=== PATIENT | male | born 1970 | race Caucasian/White ===

== ENCOUNTER 2018-08-26 17:49 | Emergency (ER) | payer OTHER, SELFPAY ==
[2018-08-26 18:06] VITALS: BP 128/85; PULSE 111; RESP 18; O2SAT 97
--- NOTE | 2018-08-26 18:23 | ED.GENADUL_ITS ---
Discharge Plan Disposition Patient Disposition: HOME Condition: Good Discharge Details Chief Complaint: RespSymp Clinical Impression: Viral URI with cough Reason For Visit: cough sorethroat Primary Care Provider: Migdalia Dalton ED Provider: Vitor Lamar [place] Meds and New Rx's Prescriptions: Continued buspirone 5 MG tablet 10 mg PO DAILY RF: 0 clonazepam [Klonopin] 0.5 MG tablet 0.5 mg PO DIRECTED PRNRF: 0 paroxetine HCl 40 MG tablet 40 mg PO DAILY RF: 0 Men's Daily 1 EACH capsule 1 ea PO DAILY RF: 0 Discharge Instructions Instructions: Upper Respiratory Infection (ED) Additional Instructions: You may continue [id number] cold medication as we discussed. Try to rest and drink plenty of fluids. Cough can linger even after the illness is better. Follow-up with primary care next week if not feeling any better. Return to ED if high fever, difficulty breathing, chest pain, other concerns. Referrals: Migdalia Dalton, PA [Primary Care Provider] - Medical Decision Making Patient's throat looks fine but his complaint is mostly pain with swallowing and coughing. Rapid strep was done and negative. Lungs are clear and saturations are good. Will obtain chest x-ray to rule out pneumonia but I think this is just URI with cough and congestion. His GI symptoms are resolved from last week. His abdomen is benign. He does not appear to be in any distress. Witho ut fever, headache, myalgias not really consistent with influenza. Chest x-ray per my review as well as preliminary radiology read negative. Patient be discharged home to continue [id number] medications as needed for cold symptoms. Follow-up with primary care next week if not doing any better. Return to ED for high fevers, mental status changes, shortness of breath, chest pain, other concerns. HPI General Mode of arrival: ambulatory . Date/Time Provider Initiated Documentation: 08/26/18 18:23 . Limitations to Documentation: no limitations . Information obtained by: patient . HPI Narrative: Patient presents to ED with complaints of cough and sore throat. Patient had a day of nausea, vomiting, diarrhea last week. It resolved and he subsequently developed cough, sore throat. Never had a fever. Does have some congestion. Denies headache or body aches. Has some pain in the right ribs with cough only. He does not feel short of breath. He does not have pleuritic pain. He has no further GI symptoms. The thing that is bothering him the most is his throat. Related Data Home Medications Medication Instructions Recorded Confirmed buspirone 10 mg PO DAILY 11/11/14 08/26/18 clonazepam [Klonopin] 0.5 mg PO DIRECTED PRN 11/11/14 08/26/18 paroxetine HCl 40 mg PO DAILY 11/11/14 08/26/18 Men's Daily 1 ea PO DAILY 08/14/16 08/26/18 Allergies Allergy/AdvReac Type Severity Reaction Status Date / Time acetaminophen [From Percocet] AdvReac Mild Nausea Unverified 08/26/18 18:12 codeine AdvReac Mild Nausea Unverified 08/26/18 18:12 oxycodone HCl [From Percocet] AdvReac Mild Nausea Unverified 08/26/18 18:12 MAPLE FLAVORING AdvReac Intermediate Uncoded 08/26/18 18:12 General Stated Complaint: RespSymp ROB: 4 Review of Systems Constitutional Denies fatigue, Denies fever(s), Denies headache(s), Denies lethargy, Denies poor appetite and Denies weakness Eyes Denies eye discharge ENT Reports otalgia, Denies headache(s), Denies mouth pain, Reports nasal congestion, Denies neck pain and Reports sore throat Cardiovascular Denies chest pain, Denies diaphoresis, Denies syncope, Denies edema, Denies palpitations and Denies dyspnea Respiratory Reports cough and Denies dyspnea Gastrointestinal Denies abdominal pain, Denies diarrhea, Denies nausea and Denies vomiting Musculoskeletal Denies back pain, Denies neck pain and Denies numbness Integumentary/Breasts Denies rash Neurologic Denies confusion, Denies syncope, Denies headache(s), Denies numbness and Denies weakness Psychiatric Denies confusion Endocrine Denies fatigue and Denies palpitations [facility] Medical History Anxiety (Chronic) Depression (Chronic) Surgical History H/O knee surgery (Inactive) H/O shoulder surgery (Inactive) Social History Smoking and Tabacco status: Former Tobacco Use Exam Const General: cooperative, comfortable and no acute distress Orientation: alert and oriented x3 HENMT Head: normocephalic and atraumatic Ears: external ears normal and TM's normal bilaterally General nose exam: no nasal discharge Mouth: oropharynx normal and moist mucous membranes Throat: posterior oropharynx normal Eyes Conjunctivae: conjunctivae normal Neck Neck: no lymphadenopathy, trachea midline and supple Resp Effort & Inspection: normal respiratory effort Auscultation: clear to auscultation bilaterally Cardio Rate: regular rate Rhythm: regular rhythm Heart Sounds: S1 normal and S2 normal GI Palpation: soft, not firm, no guarding and nontender Neuro General: alert, oriented x3, no focal motor deficits and CN's II-XI intact bilaterally Course Vital Signs Pulse 111 H 08/26/18 18:06 Respiratory Rate 18 08/26/18 18:06 Blood Pressure 128/85 08/26/18 18:06 Pulse Oximetry 97 08/26/18 18:06 Pulse 111 H 08/26/18 18:06 Respiratory Rate 18 08/26/18 18:06 Respiratory Effort 08/26/18 18:09 Blood Pressure 128/85 08/26/18 18:06 Pulse Oximetry 97 08/26/18 18:06 Oxygen Delivery Method Room Air 08/26/18 18:06 Oxygen Flow Rate 0 08/26/18 18:06
--- NOTE | 2018-08-26 19:35 | DI.RAD_ITS ---
SYMPTOMS/DIAGNOSIS: COUGH, SORE THROAT, CHEST PAIN CHEST X-RAY, PA AND LATERAL: No priors. The heart is normal in size. The lungs are clear. The mediastinal structures and pleura appear intact. IMPRESSION: Normal chest.
--- NOTE | 2018-08-26 19:59 | DI.VRAD_ITS ---
EXAM: XR Chest, 2 Views EXAM DATE/TIME: 08/26/2018 6:59 PM CLINICAL HISTORY: 47 years old, male; Signs and symptoms; Cough; Patient HX: Cough with chest pain when coughing TECHNIQUE: XR of the chest, 2 views. COMPARISON: No relevant prior studies available. FINDINGS: Lungs: Unremarkable. No consolidation. Pleural space: Unremarkable. No pleural effusion. No pneumothorax. Heart/Mediastinum: Unremarkable. No cardiomegaly. Bones/joints: Unremarkable. IMPRESSION: No infiltrates or effusions. Dictated and Authenticated by: Gagandeep Gregory MD. Ordering:CAITLIN Adler MD
[2018-08-26 20:20] VITALS: BP 121/73; PULSE 103; RESP 16; TEMP 36.8; O2SAT 100
== END 2018-08-26 20:28 | disposition home or self-care (01) ==
PROVIDERS: Emergency Provider Emergency Medicine; PCP Physician Assistant Medical
DX: R05 Cough (principal); R07.89 Other chest pain; H92.01 Otalgia, right ear; J06.9 Acute upper respiratory infection, unspecified; Z87.891 Personal history of nicotine dependence
CPT/HCPCS: 87880; 99283; 71046; 84443; 87081

== ENCOUNTER 2019-07-09 17:19 | Emergency (ER) | payer OTHER, SELFPAY ==
[2019-07-09 17:23] VITALS: BP 150/80; PULSE 104; RESP 16; TEMP 36.7; O2SAT 98
--- NOTE | 2019-07-09 18:39 | W.ED.GENAD ---
Discharge Plan Disposition Patient Disposition: HOME Condition: Stable Discharge Details Chief Complaint: Orthopedic Clinical Impression: Right knee sprain Primary Care Provider: Migdalia Dalton ED Provider: Tamra Yeung Home Meds and New Rx's Prescriptions: Continued buspirone 5 MG tablet 10 mg PO DAILY RF: 0 clonazepam [Klonopin] 0.5 MG tablet 0.5 mg PO DIRECTED PRNRF: 0 paroxetine HCl 40 MG tablet 40 mg PO DAILY RF: 0 Men's Daily 1 EACH capsule 1 ea PO DAILY RF: 0 Discharge Instructions Instructions: Knee Sprain (ED) Additional Instructions: Rest, ice, elevate right wrist as much as possible. Wear the knee brace is much as possible while symptoms present. Alternate tylenol and motrin as needed and directed for pain. Follow-up with your primary care doctor in 1 week. If symptoms do not improve or worsen, follow-up with orthopedics. Return to the emergency department with any worsening or new concerning symptoms. Stand Alone Forms: Work Release Referrals: Dannie Waldrop MD [ [facility] STAFF PHYSICIAN] - Discharge Data Discharge Date/Time-TO BE ENTERED AT DEPARTURE: 07/09/19 20:00 Discharge Physician: Tamra Yeung Medical Decision Making 48-year-old male presents with right knee pain that occurred suddenly when he attempted to pickling solution maker his adult [id number]. He states the pain is worse with range of motion and weightbearing. He has not taken any medication for pain. He has minimal suprapatellar edema but no significant effusion, erythema, ecchymosis or lesions noted. No obvious ligamentous laxity. Exam and history not consistent with septic arthritis. Right knee x-ray negative. Patient felt some improvement with ibuprofen. A right knee hinged brace was placed. He was advised on the importance of rice, Tylenol, Motrin. Advised to follow-up with PCP. Also given orthopedic follow-up info if needed. Usual and customary return precautions given prior to discharge. Medical Records Medical records reviewed: Yes I reviewed the patient's medical records. Imaging Data Radiologic Study: Radiologist's impression: XR Left Knee Exam date and time: 07/09/2019 5:56 PM Age: 48 years old Clinical indication: Pain; Knee; Right; Additional info: RT knee pain S/P picking something up TECHNIQUE: Imaging protocol: XR Left knee. Views: 4 or more views. COMPARISON: No relevant prior studies available. FINDINGS: Bones/joints: Normal. Soft tissues: Normal. IMPRESSION: 1. No acute findings. 2. No fracture. No dislocation. No joint effusion. HPI General Mode of arrival: ambulatory. Date/Time Provider Initiated Documentation: 07/09/19 17:35. Limitations to Documentation: no limitations. Information obtained by: patient. History of Present Illness 48 year old M presents to the emergency department with the chief complaint of Right knee pain, Patient started experiencing this hour(s) (1) and it has been constant. Rest improves symptom(s), Movement worsens symptoms and Other factors that worsen symptoms (Weightbearing) . Patient notes denies fever/chills and weakness. Patient did receive the following treatments prior to arrival, none Related Data Home Medications Medication Instructions Recorded Confirmed buspirone 10 mg PO DAILY 11/11/14 07/09/19 clonazepam [Klonopin] 0.5 mg PO DIRECTED PRN 11/11/14 07/09/19 paroxetine HCl 40 mg PO DAILY 11/11/14 07/09/19 Men's Daily 1 ea PO DAILY 08/14/16 07/09/19 Allergies Allergy/AdvReac Type Severity Reaction Status Date / Time acetaminophen [From Percocet] AdvReac Mild Nausea Unverified 07/09/19 17:28 codeine AdvReac Mild Nausea Unverified 07/09/19 17:28 oxycodone HCl [From Percocet] AdvReac Mild Nausea Unverified 07/09/19 17:28 MAPLE FLAVORING AdvReac Intermediate Uncoded 07/09/19 17:28 General Stated Complaint: Orthopedic ROB: 4 Review of Systems All systems reviewed & are unremarkable except as noted in HPI and below PFSH Medical History Anxiety (Chronic) Depression (Chronic) Surgical History H/O knee surgery (Inactive) H/O shoulder surgery (Inactive) Social History Smoking/Tobacco Use Status: Former Tobacco Use Alcohol Intake: current Alcohol Intake frequency: holidays/special occasions only Drug use: Never Substance use type: does not use Do you feel safe at home: Yes Do you feel safe in your relationship?: Yes Exam Const General: cooperative, healthy appearing and no acute distress HENHI Head: normal to inspection Mouth: oral mucosae normal Eyes General: appearance normal, both eyes and all related structures Neck Neck: normal visual inspection Resp Effort & Inspection: normal respiratory effort and able to speak in complete sentences Cardio Rate: regular rate Skin General skin exam: no rashes or lesions noted Neuro General: alert, awake and oriented x3 Motor: muscle tone normal throughout Extrem General: normal to inspection Other: Tenderness to palpation of right medial knee. Pain with valgus stress. No pain with varus stress. Negative anterior posterior drawer test. Negative Arnold's test. No ligamentous instability. There is very minimal edema noted to suprapatellar region. There is no ecchymosis, erythema rash or lesions. Psych Appearance: grossly normal Affect: normal affect Course Vital Signs Vital signs: Vital Signs Temperature 98.1 F 07/09/19 17:23 Pulse 104 H 07/09/19 17:23 Respiratory Rate 16 07/09/19 17:23 Blood Pressure 150/80 H 07/09/19 17:23 Pulse Oximetry 98 07/09/19 17:23 Temperature 98.1 F 07/09/19 17:23 Temperature Source Temporal Artery Scan 07/09/19 17:23 Pulse 104 H 07/09/19 17:23 Respiratory Rate 16 07/09/19 17:23 Respiratory Effort Non-Labored 07/09/19 18:34 Blood Pressure 150/80 H 07/09/19 17:23 Blood Pressure Position Sitting 07/09/19 17:23 Pulse Oximetry 98 07/09/19 17:23 Oxygen Delivery Method Room Air 07/09/19 17:23 Oxygen Flow Rate 0 07/09/19 17:23 Pain Level 10 07/09/19 17:23
[2019-07-09] MEDS: Ibuprofen 600 MG TAB PO (18:43)
--- NOTE | 2019-07-09 19:08 | DI.RAD_ITS ---
EXAM: XR KNEE RT 4V AP,LAT,SANTOS,PAT CLINICAL HISTORY: right knee pain with picking up something TECHNIQUE: COMPARISON: No exams were available for comparison FINDINGS: Four views were obtained. There are mild degenerative changes most prominent involving the medial t ibiofemoral joint where there is mild cartilaginous joint space narrowing. No evidence of acute frac ture. IMPRESSION:
--- NOTE | 2019-07-09 19:41 | DI.VRAD_ITS ---
PROCEDURE INFORMATION: Exam: XR Left Knee Exam date and time: 07/09/2019 5:56 PM Age: 48 years old Clinical indication: Pain; Knee; Right; Additional info: RT knee pain S/P picking something up TECHNIQUE: Imaging protocol: XR Left knee. Views: 4 or more views. COMPARISON: No relevant prior studies available. FINDINGS: Bones/joints: Normal. Soft tissues: Normal. IMPRESSION: 1. No acute findings. 2. No fracture. No dislocation. No joint effusion. Dictated and Authenticated by: Moises Landin MD. Ordering:CHRISTIN Barboza MD
== END 2019-07-09 20:00 | disposition home or self-care (01) ==
PROVIDERS: Emergency Provider Physician Assistant; PCP Physician Assistant Medical
DX: S83.91XA Sprain of unspecified site of right knee, initial encounter (principal); X50.9XXA Other and unspecified overexertion or strenuous movements or postures, initial encounter
CPT/HCPCS: 99283; 73564; L1810

== ENCOUNTER 2019-09-08 16:39 | Outpatient (REF) | payer OTHER, SELFPAY ==
[2019-09-08 20:12] LABS: Abs Immature Grans 0.02 k/cumm (0.0-0.09); Absolute Basophil Count 0.04 k/cumm (0.0-0.2); Absolute Eosinophil Count 0.18 k/cumm (0.0-0.7); Absolute Lymphocyte Count 2.26 k/cumm (1.2-3.4); Absolute Monocyte Count 0.97 k/cumm (0.11-0.7); Absolute Neutrophil Count 3.82 k/cumm (1.2-6.7); Basophils % 0.5; Eosinophils % 2.5; HGB 13.5 g/dL (13.5-17.5); Immature Grans % 0.3 %; Mean Corp. HGB Concentration 34.6 g/dL (32.0-36.0); Mean Corpuscular Hemoglobin 31.1 pg (27.0-33.0); Mean Corpuscular Volume 89.9 fL (80-95); Mean Platelet Volume 9.3 fL (8.0-11.0); Monocytes % 13.3; Neutrophils % 52.4; Platelet Count 294 x1000/uL (130-400); RBC 4.34 m/cumm (4.50-6.00); RBC Distribution Width 12.9 % (11.8-14.1); White Blood Cell Count 7.29 k/cumm (4.4-10.8)
[2019-09-08 20:41] LABS: ALT 24 U/L (16-63); AST 13 U/L (15-37); Albumin 3.9 g/dL (3.4-5.0); Alkaline Phosphatase 92 U/L (46-116); Anion Gap 9.7 mmol/L (3-11); BUN 19 mg/dL (7-18); Bilirubin, Total 0.3 mg/dL (0.2-1.0); CO2 26.3 mmol/L (21.0-32.0); Calcium 8.9 mg/dL (8.5-10.1); Chloride 104 mmol/L (98-107); Glucose 77 mg/dL (74-106); Potassium 4.2 mmol/L (3.5-5.1); Sodium 140 mmol/L (136-145); Total Protein 6.8 g/dL (6.4-8.2)
== END 2019-09-08 16:59 ==
LOC: NCHCN 16:39
PROVIDERS: PCP Physician Assistant Medical; Visit Provider Physician Assistant Medical
DX: R10.32 Left lower quadrant pain (principal)
CPT/HCPCS: 80053; 85025

== ENCOUNTER 2019-09-09 09:04 | Outpatient (CLI) | payer OTHER, SELFPAY ==
[2019-09-09] MEDS: Normal Saline - Diluent 50 ML VIAL IV (10:52)
[2019-09-09] MEDS: Omnipaque 350 MG/ML 100 ML BTL IJ (11:08)
--- NOTE | 2019-09-09 11:10 | DI.CT_ITS ---
EXAM: CT ABDOMEN PELVIS W CLINICAL HISTORY: LLQ ABD PAIN, R10.32 TECHNIQUE: Post IV and oral contrast. COMPARISON: No exams were available for comparison FINDINGS: There is stranding in the fat seen lateral to the mid descending colon. There is mild adjacent wall t hickening. No definite diverticula are seen. There is no gross evidence of a mass however this cannot be excluded. There is a moderate quantity of stool seen throughout the colon with some increased sto ol in the rectum. No small bowel or gastric dilatation is seen. Heart size is normal. The lung bases appear clear. The liver shows a few tiny hypodensities, likely c ysts. The gallbladder, spleen, pancreas, kidneys and adrenals are unremarkable. The aorta is normal i n diameter. There is diffuse bladder wall thickening. The prostate does not appear enlarged. No focal bladder mass or calcifications are seen. There is no adenopathy or ascites. 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 IMPRESSION: 1. Inflammation in the fat lateral to the mid descending colon. There are no definite diverticula in this location. Findings could represent epiploic appendagitis. 2. Diffuse bladder wall thickening.
== END 2019-09-09 09:24 ==
PROVIDERS: PCP Physician Assistant Medical; Visit Provider Physician Assistant Medical
DX: R10.32 Left lower quadrant pain (principal); K76.89 Other specified diseases of liver; N32.89 Other specified disorders of bladder; K63.89 Other specified diseases of intestine
CPT/HCPCS: 74177; J3490

== ENCOUNTER 2019-11-28 02:33 | Outpatient (CLI) | payer OTHER, SELFPAY ==
--- NOTE | 2019-11-28 07:30 | DI.RAD_ITS ---
EXAM: XR TOE LT GREAT CLINICAL HISTORY: HALLUX VALGUS, M20.10. TECHNIQUE: 2D digital imaging was performed. COMPARISON: No exams were available for comparison FINDINGS: BONES: No acute fracture is present. No bony destructive lesion is seen. Hypertrophic changes are s een at the 1st metatarsophalangeal joint. JOINTS: No dislocation present. There is moderate narrowing of the 1st metatarsophalangeal joint. SOFT TISSUE: Normal. 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 DATA REPOSITORY: RADIATION DOSE DELIVERED:
--- NOTE | 2019-11-28 07:30 | DI.RAD_ITS ---
EXAM: XR ANKLE RT COMPLETE CLINICAL HISTORY: RT FOOT PAIN, M79.671. TECHNIQUE: 2D digital imaging was performed. COMPARISON: No exams were available for comparison FINDINGS: BONES: There is a well corticated tiny osseous density at the tip of the medial malleolus most consis tent with an old injury. No acute fracture or dislocation. The bones are normally mineralized. The re is a small spur at the plantar surface of the calcaneus. JOINTS: The ankle mortise is normally aligned. SOFT TISSUE: Normal. IMPRESSION: No acute abnormality. DATA REPOSITORY: RADIATION DOSE DELIVERED:
--- NOTE | 2019-11-28 07:30 | DI.RAD_ITS ---
EXAM: XR TOE RT FIFTH CLINICAL HISTORY: RT FOOT PAIN, M79.671. TECHNIQUE: 2D digital imaging was performed. COMPARISON: No exams were available for comparison FINDINGS: BONES: No acute fracture is present. No bony destructive lesion is seen. JOINTS: No dislocation present. SOFT TISSUE: Normal. IMPRESSION: No evidence of acute fracture, dislocation, or subluxation. DATA REPOSITORY: RADIATION DOSE DELIVERED:
== END 2019-11-28 02:53 ==
PROVIDERS: PCP Physician Assistant Medical; Visit Provider Nurse Practitioner Family
DX: M79.671 Pain in right foot (principal); M77.31 Calcaneal spur, right foot; M79.674 Pain in right toe(s); M20.12 Hallux valgus (acquired), left foot; M19.072 Primary osteoarthritis, left ankle and foot
CPT/HCPCS: 73610; 73660

== ENCOUNTER 2020-04-02 20:36 | Outpatient (REF) | payer OTHER, SELFPAY ==
[2020-04-02 22:09] LABS: Calculated LDL 128 mg/dL (<100); Cholesterol 196 mg/dL (<200); HDL Cholesterol 59 mg/dL (40-60); Triglyceride 45 mg/dL (<150)
[2020-04-05 09:50] LABS: PSA, Diagnostic 1.6 ng/mL (0.0-2.5)
== END 2020-04-02 20:56 ==
LOC: NCHCN 20:36
PROVIDERS: PCP Physician Assistant Medical; Visit Provider Physician Assistant Medical
DX: Z00.00 Encounter for general adult medical examination without abnormal findings (principal); Z13.220 Encounter for screening for lipoid disorders; R39.11 Hesitancy of micturition
CPT/HCPCS: 80061; 84153

== ENCOUNTER 2020-08-19 09:43 | Emergency (ER) | payer OTHER, SELFPAY ==
[2020-08-19 09:48] VITALS: BP 139/79; PULSE 78; RESP 16; TEMP 36.7; O2SAT 99
--- NOTE | 2020-08-19 10:36 | ED.GENADUL_ITS ---
Discharge Plan Disposition Patient Disposition: HOME Condition: Stable Discharge Details Clinical Impression: Biceps strain Primary Care Provider: Migdalia Dalton ED Provider: Dallin Borrego Home Meds and New Rx's Prescriptions: Continued buspirone 5 MG tablet 10 mg PO DAILY RF: 0 clonazepam [Klonopin] 0.5 MG tablet 0.5 mg PO DIRECTED PRNRF: 0 paroxetine HCl 40 MG tablet 40 mg PO DAILY RF: 0 fexofenadine [Loren Allergy] 60 mg Tablet 60 mg PO DAILY PRNRF: 0 Discharge Instructions Instructions: Muscle Strain (ED) Additional Instructions: At this time I do not see any evidence of obvious tendon rupture. This is likely a soft tissue injury in nature. As we discussed I will keep you out of work until Sunday. I recommend cool and or warm compresses every 2 hours for 20 minutes. Gentle stretching as tolerated. Aysq-kaq-mdrnbwv anti-inflammatory medication as directed. Please watch for new or worsening symptoms and return to the ER for any concerns. I have given you the name and number of our orthopedic team. If you are pain persists or you feel as though you are not able to return to work on Sunday I do recommend reaching out to them for outpatient evaluation and further treatment of your injury. Stand Alone Forms: Work Release Referrals: Dannie Waldrop MD [ [facility] STAFF PHYSICIAN] - Discharge Data Discharge Date/Time-TO BE ENTERED AT DEPARTURE: 08/19/20 10:53 Medical Decision Making 49-year-old gentleman, left-hand dominant, presents for right arm pain that occurred around 830 this morning while squeezing and turning a wrench. He did not feel or hear a pop. He describes the pain as cramping in nature. With initially severe, but now the pain after rest has been cut nearly in half. Clinically he appears well, nontoxic. Neuro, vascular, tendon intact. No obvious deformity. Clinically this appears to be soft tissue in nature. Given the mechanism I see no indication for x-ray imaging. Clinically there does not appear to be a biceps tendon rupture. Discussed that there may be a strain or partial tear. Discussed options. We will pursue a more conservative approach. We will keep him out of work until Sunday. Will rest, elevate, cool and/or warm compresses, gentle stretching, [id number] Tylenol and/or Motrin as directed for discomfort. Referral given to orthopedics, if he is not feeling si gnificant improvement by Sunday he will reach out to them for further evaluation. Outpatient ultrasound may be indicated for further evaluation. Medical Records Medical records reviewed: Yes I reviewed the patient's medical records. HPI General Mode of arrival: ambulatory . Date/Time Provider Initiated Documentation: 08/19/20 09:43 . Limitations to Documentation: no limitations . Information obtained by: patient . HPI Narrative: This is a 49-year-old gentleman, left-hand dominant, past medical history that includes anxiety and depression, presenting to the ER for a right forearm injury that he sustained around 830 this morning at work. He states that he was tightening a bolt, squeezing his hand and using his arm in a rotational movement when he felt pain in his lower bicep. He describes the pain as cramping and when it was present initially was a 9 out of 10. Now he states the pain is more like a 5 out of 10, worse with movement, but has not resolved completely. Because his pain persists he has decided to come to the ER for further evaluation. He denies any other injury. He denies any numbness, tingling, weakness. He denies feeling a snap or hearing a loud pop. He feels as though his arms look symmetric, no obvious deformity. He denies any pain in his shoulder, wrist, hand. Denies chest pain or shortness of breath. Related Data Home Medications Medication Instructions Recorded Confirmed buspirone 10 mg PO DAILY 11/11/14 08/19/20 clonazepam [Klonopin] 0.5 mg PO DIRECTED PRN 11/11/14 08/19/20 paroxetine HCl 40 mg PO DAILY 11/11/14 08/19/20 fexofenadine [Loren Allergy] 60 mg PO DAILY PRN 08/19/20 08/19/20 Allergies Allergy/AdvReac Type Severity Reaction Status Date / Time acetaminophen [From Percocet] AdvReac Mild Nausea Unverified 08/19/20 09:53 codeine AdvReac Mild Nausea Unverified 08/19/20 09:53 oxycodone HCl [From Percocet] AdvReac Mild Nausea Unverified 08/19/20 09:53 MAPLE FLAVORING AdvReac Intermediate Uncoded 08/19/20 09:53 General Stated Complaint: Orthopedic ROB: 4 Review of Systems Constitutional Constitutional: Denies fever(s) Cardiovascular Cardiovascular: Denies chest pain at rest and Denies dyspnea Respiratory Respiratory: Denies dyspnea Musculoskeletal Musculoskeletal: Denies deformity, Denies arthralgias, Denies numbness, Reports stiffness and Denies tingling Integumentary/Breasts Skin/Breast: Denies erythema Neurologic Neurologic: Denies numbness and Denies tingling PFSH Medical History Anxiety Depression Surgical History H/O knee surgery H/O shoulder surgery Social History Smoking/Tobacco Use Status: Current every day Tobacco Type: smokeless tobacco Smoking risk assessment performed?: Yes Alcohol Intake: current Alcohol Intake frequency: holidays/special occasions only Drug use: Never Substance use type: does not use Do you feel safe at home: Yes Do you feel safe in your relationship?: Yes Exam Const General: cooperative, healthy appearing, comfortable and no acute distress Orientation: alert and awake [facility] Head: normal to inspection, normocephalic and atraumatic Eyes General: appearance normal, both eyes and all related structures Eyelids: eyelids normal Conjunctivae: conjunctivae normal Neck Neck: normal visual inspection, full ROM, trachea midline and supple Resp Effort & Inspection: normal respiratory effort and able to speak in complete sentences Auscultation: clear to auscultation bilaterally Cardio Rate: regular rate Rhythm: regular rhythm Skin General skin exam: no rashes or lesions noted Neuro General: patient alert, patient awake, moves all extremities and no focal motor deficits Cognition: normal cognition Speech: speech normal Gait: normal gait Motor: muscle tone normal throughout and strength 5/5 throughout Sensory Exam: no sensory deficits noted Extrem General: normal to inspection, full ROM and capillary refill normal Right upper extremity: normal to inspection, full ROM, normal capillary refill, shoulder/upper arm Details: normal to inspection, axillary nerve sensory function normal and normal ROM; no tenderness, no swelling, no ecchymosis and no deformity, elbow/forearm Details: normal to inspection, tenderness, normal ROM and distal pulses intact; no swelling and no deformity, wrist Details: normal to inspection, normal ROM and radial pulse present; no tenderness and no swelling and hand Details: normal to inspection, normal capillary refill, neuromotor exam normal, neurosensory exam normal and tendon exam normal Shoulder/upper arm images: 1. Patient has diffuse discomfort of the distal lateral bicep and the biceps brachii tendon. There does not appear to be any deformity. Full range of motion. 5 out of 5 strength. Neuro, vascular, tendon intact. There is no swelling, erythema, ecchymosis. Psych Appearance: grossly normal Mental Status: mental status grossly normal Course Vital Signs Vital signs: Vital Signs Temperature 36.7 C 08/19/20 09:48 Pulse 78 08/19/20 09:48 Respiratory Rate 16 08/19/20 09:48 Blood Pressure 139/79 08/19/20 09:48 Pulse Oximetry 99 08/19/20 09:48 Temperature 36.7 C 08/19/20 09:48 Temperature Source Skin 08/19/20 09:48 Pulse 78 08/19/20 09:48 Respiratory Rate 16 08/19/20 09:48 Respiratory Effort Non-Labored 08/19/20 09:53 Blood Pressure 139/79 08/19/20 09:48 Blood Pressure Position Sitting 08/19/20 09:48 Pulse Oximetry 99 08/19/20 09:48 Oxygen Delivery Method Room Air 08/19/20 09:48 Oxygen Flow Rate 0 08/19/20 09:48 Pain Level 0 08/19/20 09:48 Comment 08/19/20 09:48
== END 2020-08-19 10:53 | disposition home or self-care (01) ==
PROVIDERS: Emergency Provider Physician Assistant; PCP Physician Assistant Medical
DX: S46.211A Strain of muscle, fascia and tendon of other parts of biceps, right arm, initial encounter (principal); X50.9XXA Other and unspecified overexertion or strenuous movements or postures, initial encounter; Y99.0 Civilian activity done for income or pay
CPT/HCPCS: 99282; 99283

== ENCOUNTER 2020-10-06 09:59 | Outpatient (CLI) | payer OTHER, SELFPAY ==
--- NOTE | 2020-10-06 09:30 | DI.RAD_ITS ---
EXAM: XR ELBOW RT COMPLETE CLINICAL HISTORY: F/U. TECHNIQUE: 2D digital imaging was performed. COMPARISON: No exams were available for comparison FINDINGS: There is no evidence of fracture or joint effusion. There is no swelling of the olecranon bursa. Ra dial head appears unremarkable as does the capitellum. Epicondyles are unremarkable. IMPRESSION: No significant radiographic findings on these three views of the right elbow. DATA REPOSITORY: RADIATION DOSE DELIVERED:
== END 2020-10-06 10:00 | disposition home or self-care (01) ==
LOC: DIORS 10:00
PROVIDERS: PCP Physician Assistant Medical; Referring Provider Physician Assistant Medical; Visit Provider Student in an Organized Health Care Education/Training Program
DX: M25.521 Pain in right elbow (principal); S46.211D Strain of muscle, fascia and tendon of other parts of biceps, right arm, subsequent encounter
CPT/HCPCS: 73080

== ENCOUNTER 2020-10-28 02:20 | Outpatient (CLI) | payer OTHER, SELFPAY ==
--- NOTE | 2020-10-28 08:30 | DI.MRI_ITS ---
EXAM: MR UPPER JOINT RT WO CLINICAL HISTORY: PARTIAL DISTAL BICEPS TENDON RUPTURE,S46.211A TECHNIQUE: Multiplanar multisequence MRI of the right elbow was performed COMPARISON: CR XR ELBOW RT COMPLETE from 10/06/2020 FINDINGS: MARROW:There is no evidence of fracture, joint effusion, nor ominous osseous lesions. No evidence of radial head fracture. No osteochondral defects at the capitellum and trochlea. No ab normality at the coronoid process nor in the olecranon and no swelling of the olecranon bursa. No ev idence of epicondylitis no abnormal signal in the common extensor and common flexor tendons. ARTICULATION: Minimal amount of increased fluid in the elbow joint. No large joint effusion. No loo se intra-articular body evident. COLLATERAL LIGAMENTS: Intact TENDONS: Posteriorly the triceps tendon appears intact. Anteriorly the brachialis tendon appears intact. There is abnormal signal in the distal biceps tendon at and just proximal to the radial tuberosity but there does not appear to be a high grade tear at t his level. There is no retraction of the muscles tendons junction. No muscle atrophy. IMPRESSION: 1. Some abnormal signal is noted in the distal biceps tendon at and just above the radial tuberosity insertion. However, there does not appear to be a high-grade tear of the tendon. There is no retrac tion of the musculotendinous junction. 2. Minimal amount of increased elbow joint fluid. No large joint effusion. No loose intra-articular body evident. No osteochondral defects. 3. No evidence of epicondylitis. DATA REPOSITORY:
== END 2020-10-28 02:40 ==
PROVIDERS: PCP Physician Assistant Medical; Visit Provider Student in an Organized Health Care Education/Training Program
DX: S46.211A Strain of muscle, fascia and tendon of other parts of biceps, right arm, initial encounter (principal); M25.421 Effusion, right elbow
CPT/HCPCS: 73221

== ENCOUNTER 2021-04-19 19:22 | Outpatient (REF) | payer OTHER, SELFPAY ==
[2021-04-19 19:24] LABS: Abs Immature Grans 0.03 10^3/uL (0.0-0.06); Absolute Basophil Count 0.07 10^3/uL (0.0-0.2); Absolute Lymphocyte Count 2.85 10^3/uL (1.2-3.4); Absolute Monocyte Count 0.72 10^3/uL (0.1-0.8); Absolute Neutrophil Count 3.72 10^3/uL (1.2-6.7); Basophils % 0.9; Eosinophils % 2.6; HCT 35.9 % (40.0-50.0); HGB 12.5 g/dL (13.5-17.5); Immature Grans % 0.4; Lymphocytes % 37.5; MCH 31.6 pg (27.0-33.0); MCHC 34.8 % (32.0-36.0); MCV 90.9 fL (80-95); MPV 9.1 fL (8.0-11.0); Monocytes % 9.5; Neutrophils % 49.1; Nucleated RBC 0 %; Platelet Count 285 10^3/uL (130-400); RBC 3.95 10^6/uL (4.36-5.78); RDW 12.3 % (11.8-14.1); RDW-SD 40.6 fL; WBC 7.59 10^3/uL (4.4-10.8)
[2021-04-19 19:42] LABS: Anion Gap 8.3 mmol/L (3-11); BUN 12 mg/dL (7-18); CO2 27.7 mmol/L (21.0-32.0); CREATININE 0.9 mg/dL (0.70-1.30); Calcium 8.9 mg/dL (8.5-10.1); Chloride 99 mmol/L (98-107); Glucose 78 mg/dL (74-106); Potassium 4.1 mmol/L (3.5-5.1); Sodium 135 mmol/L (136-145)
[2021-04-20 17:08] LABS: PSA, Screening 0.4 ng/mL (0.0-3.5)
[2021-04-21 10:57] LABS: Lyme Ab w Rflx to Lyme Confirm Negative (Negative)
[2021-04-21 22:35] LABS: Anaplasma phagocytophilum Negative (Negative); B. miyamotoi PCR Negative (Negative); Babesia divergens/MO-1 Negative (Negative); Babesia duncani Negative (Negative); Babesia microti Negative (Negative); Ehrlichia chaffeensis Negative (Negative); Ehrlichia ewingii/canis Negative (Negative); Ehrlichia muris eauclairensis Negative (Negative)
== END 2021-04-19 19:23 | disposition home or self-care (01) ==
LOC: NCHCN 19:22
PROVIDERS: PCP Physician Assistant Medical; Visit Provider Physician Assistant Medical
DX: R35.0 Frequency of micturition (principal); W57.XXXA Bitten or stung by nonvenomous insect and other nonvenomous arthropods, initial encounter
CPT/HCPCS: 80048; 84153; 87798; 85025; 86618

== ENCOUNTER 2021-08-31 01:19 | Outpatient (CLI) | payer OTHER, SELFPAY ==
[2021-08-31 11:58] LABS: Source Nasal/Nares
[2021-08-31 14:19] LABS: COVID-19 PCR Negative (Negative)
== END 2021-08-31 01:20 | disposition home or self-care (01) ==
LOC: LBO 01:19
PROVIDERS: PCP Physician Assistant Medical; Visit Provider Surgery
DX: Z20.822 Contact with and (suspected) exposure to COVID-19 (principal); Z01.818 Encounter for other preprocedural examination
CPT/HCPCS: 87635

== ENCOUNTER 2021-09-02 14:22 | Day surgery (SDC) | payer OTHER, SELFPAY ==
--- NOTE | 2021-09-02 14:30 | W.ANESPRE ---
General Info Date of Service Date Performed: 09/02/21 Height: 5 ft 7 in Weight: 94.574 kg Body Mass Index (BMI): 32.6 Surgical Procedure: Operation Date: 06/10/21 09:05 Proposed Procedure Side Surgeon p Colonoscopy Kusum Mckinley DO Operation Date: 09/02/21 13:35 Proposed Procedure Side Surgeon p Colonoscopy Kusum Mckinley DO Meds Allergies and Home Medications Allergies Allergy/AdvReac Type Severity Reaction Status Date / Time codeine AdvReac Mild Nausea Unverified 09/02/21 14:28 oxycodone HCl [From Percocet] AdvReac Mild Nausea Unverified 09/02/21 14:28 MAPLE FLAVORING AdvReac Intermediate Uncoded 09/02/21 14:28 Home Medication Medication Instructions Recorded buspirone 5 mg tablet 10 mg PO DAILY 11/11/14 clonazepam 0.5 mg tablet (Klonopin) 0.5 mg PO DIRECTED PRN 11/11/14 cyclobenzaprine 10 mg tablet 10 mg PO HS PRN 12/28/20 cetirizine 10 mg capsule (Zyrtec) 10 mg PO DAILY PRN 01/03/21 paroxetine HCl 40 mg tablet (Paxil) 40 mg PO DAILY 01/03/21 [id number]-qbi-rvghn acid-vit 1 tab PO DAILY 05/20/21 K-lycop 400 mcg-20 mcg-370 mcg tablet (Men's 50 Plus Daily Formula) Current Visit Medications: Current Medications Generic Name Dose Route Start Last Admin Trade Name Freq PRN Reason Stop Dose Admin Hyoscyamine Sulfate 0.125 mg 09/01/21 22:28 Hyoscyamine 0.125 Mg Sl/Oral/Chew SL DIRECTED PRN Ringer's Solution 1,000 mls @ 80 mls/hr 09/02/21 06:00 IV 10/01/21 23:59 INFUSION [facility] IV Miscellaneous Supplies 1 each 09/02/21 06:00 Iv Access IV 10/01/21 23:59 DIRECTED [facility] Ondansetron HCl 4 mg 09/01/21 22:28 Ondansetron 4 Mg/2 Ml Vial IVP Q4H PRN PRN Nausea / Vomiting Sodium Chloride 0 ml 09/02/21 06:00 Normal Saline Flush 10 Ml Syr IV 10/01/21 23:59 PRN PRN Sodium Chloride 0 ml 09/02/21 06:00 Normal Saline 10 Ml Vial IJ 10/01/21 23:59 DIRECTED PRN Sterile Water 0 ml 09/02/21 06:00 Water,Injection,Sterile 10 Ml Vial IJ 10/01/21 23:59 DIRECTED PRN PFSH Active Problems Active Problems: Problem Status Onset Code Family history of colon cancer in father Z80.0 Screening for colon cancer Z12.11 Medical History Medical History Anxiety disorder Cervicalgia Degenerative joint disease Depression Gastritis, chronic Generalized pain Hallux valgus Headache Heel pain Low back pain Rupture of right biceps tendon Surgical History Surgical History H/O knee surgery H/O shoulder surgery Tobacco Smoking/Tobacco Use Status: Current every day Tobacco Type: smokeless tobacco Smokeless tobacco user: chewing tobacco Alcohol Alcohol Intake: current Alcohol intake frequency: holidays/special occasions only Substance Use Substance use: Never Substance use type: does not use Vital Signs and Lab Results Vital Signs Most Recent Vital Signs in EMR: Temp Pulse Resp BP Pulse Ox 36.2 C L 88 18 138/92 H 98 09/02/21 14:36 09/02/21 14:36 09/02/21 14:36 09/02/21 14:36 09/02/21 14:36 Lab Results Blood Type / Crossmatch: No Data to Display Complete Blood Count: No Data to Display Complete Metabolic Panel: No Data to Display Liver Function Panel: No Data to Display Coagulation Panel: No Data to Display Cardiac Panel: No Data to Display Arterial Blood Gas: No Data to Display Venous Blood Gas: No Data to Display Pancreas Panel: No Data to Display Thyroid Panel: No Data to Display Infectious Disease: Coronavirus (COVID-19)(PCR) Negative (Negative) 08/31/21 08:15 08/31/21 Coronavirus 2019 Source Nasal/Nares 08/31/21 08:15 08/31/21 Blood Cultures: No Data to Display Toxicology Panel: No Data to Display Anesthesia Assessment and Plan Anesthesia History Personal History: No History of Anesthesia Complications Family History: No Family History of Anesthesia Complications Exercise Tolerance Exercise Tolerance: Metabolic Equivalents>4 Cardiac & Pulmonary Exam Cardiac Exam: Normal S1/S2 Heart Sounds Pulmonary Exam: Clear Bilateral Breath Sounds Implantable Cardiac Device Does patient have a Pacemaker or an ICD?: No Airway Exam Known Difficult Airway: No Mallampati Class: 2 Mouth Opening: Narrow (< 3cm) Thyromental Distance: Less than 3 cm Neck Range of Motion: Full ROM and Limited ROM Neck Circumference: Normal Teeth Condition: Generalized Poor Dentition ASA Classification ASA Score: ASA 2 Emergency Case?: No NPO Status NPO Status: NPO Clears >2 hours, Solids >8 hours Anesthesia Plan Resuscitation Status: Full Code Anesthesia Technique: General Anesthesia Airway Planned: Natural Airway Monitors Used: Standard Monitors Preoperative Comments:: 50 yo male with family history of colon cancer here for colo. Sig PMHx: anxiety/depression, neck pain/DJD, daily chewing tobacco, occ EtOH.
[2021-09-02 14:33] VITALS: BMI 32.6
[2021-09-02 14:36] VITALS: BP 138/92; PULSE 88; RESP 18; TEMP 36.2; O2SAT 98
--- NOTE | 2021-09-02 15:07 | COLE_ITS ---
Colonoscopy Report Date of procedure: 09/02/21 Pre-op diagnosis general: family hx CRC Surgeon: Kusum Mckinley Anesthesia Type: General:No Airway and Primary Nerve Block Estimated blood loss (mL): 0 Pathology: none sent Complications: None Disposition: same day Prep: Miralax/Dulcolax Retraction Time: 8 Procedure Description: After informed consent was obtained the patient was taken to the procedure room and placed in a left decubitous position. Monitors were applied and a time out was done. The patients name, date of , procedure, allergies to medications and metal in their body was reviewed. The patient was then sedated. Once sedated and comfortable a rectal exam was done. External exam was normal. Internal exam revealed a normal sphincter tone and no palpable masses. The prostate nl The scope was then introduced and retrofelexed. No internal hemorrhoids were identified. The scope was then advanced to the cecum w/out difficulty. The TI and appendiceal orifice were identified. The prep was BBPS-2 in all segments (8). The scope was then slowly retracted over 8 minutes back into the rectum. There are no polyps,AVM's or diverticula apparent today. The muscosa is pink adn healthy throughout. The scope was removed and the patient was woken up and taken back to Same day surgery in stable condition. The patient tolerated the procedure well and there were no immediate complications. Follow up: The patient should follow up in 5 years unless they develop changes i n bowel habits or other new gastrointestinal complaints.
--- NOTE | 2021-09-02 15:08 | PDOC.DSDIS_ITS ---
Discharge Plan Disposition Patient Disposition: HOME Condition: Good Discharge Details Reason For Visit: colon scope Attending Provider: Kusum Mckinley Primary Care Provider: Migdalia Dalton Home Meds and New Rx's Prescriptions: Continued cyclobenzaprine 10 mg tablet 10 mg PO HS PRN0RF Men's 50 Plus Daily Formula 400-20-370 mcg tablet 1 tab PO DAILY 0RF Zyrtec 10 mg capsule 10 mg PO DAILY PRN0RF paroxetine HCl [Paxil] 40 mg tablet 40 mg PO DAILY 0RF buspirone 5 MG tablet 10 mg PO DAILY 0RF clonazepam [Klonopin] 0.5 MG tablet 0.5 mg PO DIRECTED PRN0RF Discontinued polyethylene glycol 3350 17 gram/dose powder 17 g PO ONCE Qty: 238 0RF Rx Instructions: To be taken as directed by prescriber's office for colonoscopy prep. bisacodyl [Dulcolax (bisacodyl)] 5 mg tablet,delayed release (DR/EC) 5 mg PO ONCE Qty: 4 0RF Rx Instructions: Take according to provider's instructions for colonoscopy prep. Discharge Instructions Additional Instructions: DSU Colonoscopy Post-O p Instructions Instructions for Everyone who is given Anesthesia: For your safety, please do the following for the next twenty-four (24) hours: *Do Not operate a motor vehicle (car, truck, motorcycle, etc.) *Do Not drink alcoholic beverages or use any recreational drugs for the first 24 hours or while taking pain medications. The medications in your body may have a reaction that can be dangerous. *Do Not make any important decisions or sign any important papers. Findings:normal Follow up: Repeat 5 yrs 1. No lifting over 20 pounds or strenuous activity for the first 24 hours after your procedure. After 24 hours there are no restrictions on your activity but you may feel fatigued for a few days. 2. After you arrive home you may have a light meal and return to your normal diet as you can tolerate it without feeling sick to your stomach. 3. You may have a bloated, gaseous feeling in your belly (abdomen) after a colonoscopy. Passing gas and belching will help. Walking or lying down on your left side with your knees flexed may relieve the discomfort. Call the office at [phone] (Office) or [phone] (Hospital) right away if you notice any of the following: a.Vomiting of blood or ?coffee ground stools?. b.Rectal bleeding 1Tbsp, blood clots or continuous bleeding. c.Severe belly (abdominal) pain. d.A hard distended belly (abdomen) and an inability to pass gas. 4. Please don?t expect to have a normal BM (bowel movement) for 2-3 days after your procedure. 5. If there are questions regarding the findings of your procedure, please contact your doctor 6. If you are unable to contact your doctor with a problem, contact the hospital at [phone]. 7. Continue all your regular medications unless directed otherwise. I understand the above instructions and have no questions. Signature of Patient or Adult Escort Name of Responsible Adult Escort Signature of Nurse Date/Time Activity:: see above Diet:: see above Discharge Orders Discharge Orders: Discharge Order (Routine); Ordered 09/01/21 Ordered By: Kusum Mckinley Discharge Data Discharge Date/Time-TO BE ENTERED AT DEPARTURE: 09/02/21 16:35
[2021-09-02] MEDS: Lactated Ringers 1,000 ML 80 ML IV (15:12)
[2021-09-02 15:38] VITALS: BP 110/80; PULSE 81; RESP 16; TEMP 36.2; O2SAT 95
--- NOTE | 2021-09-02 15:48 | W.ANESPOSTOP ---
Postoperative Evaluation Date, Time and Location Date Performed: 09/02/21 Time Performed: 15:48 Patient Location: Day Surgery Unit Vital Signs Most Recent Imported Vital Signs: Most Recent Vital Signs Temp Pulse Resp BP Pulse Ox 36.2 C L 81 16 110/80 95 09/02/21 15:38 09/02/21 15:38 09/02/21 15:38 09/02/21 15:38 09/02/21 15:38 Pain Score Most Recent Pain Score: Most Recent Pain Score Pain Level 0 09/02/21 15:38 Assessment Mental Status: Awake (Alert & Oriented to Patient Baseline) Airway and Respiratory Function: Patent airway with normal (patient baseline) respiratory exam Cardiovascular Function: Hemodynamically Stable Hydration Status: Adequately Hydrated Nausea & Vomiting: No Nausea or Vomiting Pain: Pt. Denies Any Pain Peripheral Nerve Block: Patient did not receive a nerve block
[2021-09-02 16:10] VITALS: BP 109/74; PULSE 62; RESP 18; TEMP 36.5; O2SAT 99
== END 2021-09-02 16:35 | disposition home or self-care (01) ==
PROVIDERS: PCP Physician Assistant Medical; Visit Provider Surgery
PROC: 0DJD8ZZ Inspection of Lower Intestinal Tract, Via Natural or Artificial Opening Endoscopic (ICD-10-PCS; CPT 45378; principal; 2021-09-02 13:30)
DX: Z12.11 Encounter for screening for malignant neoplasm of colon (principal); Z80.0 Family history of malignant neoplasm of digestive organs
CPT/HCPCS: 45378; J2001

== ENCOUNTER 2021-10-19 11:15 | Outpatient (REF) | payer OTHER, SELFPAY ==
[2021-10-19 15:47] LABS: HCT 40.9 % (40.0-50.0); HGB 13.8 g/dL (13.5-17.5); MCH 30.9 pg (27.0-33.0); MCHC 33.7 % (32.0-36.0); MCV 91.7 fL (80-95); MPV 9.1 fL (8.0-11.0); Platelet Count 319 10^3/uL (130-400); RBC 4.46 10^6/uL (4.36-5.78); RDW 12.4 % (11.8-14.1); RDW-SD 41.5 fL; WBC 8.04 10^3/uL (4.4-10.8)
[2021-10-19 15:50] LABS: Uric Acid 4.9 mg/dL (3.5-7.2)
== END 2021-10-19 11:16 | disposition home or self-care (01) ==
LOC: NCHCN 11:15
PROVIDERS: PCP Physician Assistant Medical; Visit Provider Physician Assistant Medical
DX: M79.642 Pain in left hand (principal)
CPT/HCPCS: 85027; 84550; 86140

== ENCOUNTER 2021-10-27 10:35 | Outpatient (CLI) | payer OTHER, SELFPAY ==
--- NOTE | 2021-10-27 09:00 | DI.RAD_ITS ---
Exam(s) XR SHOULDER LT COMPLETE 2+V EXAM: XR SHOULDER LT COMPLETE 2+V CLINICAL HISTORY: left shoulder pain. TECHNIQUE: 2D digital imaging was performed. COMPARISON: No exams were available for comparison FINDINGS: 3 views No evidence of fracture or dislocation or abnormal soft tissue calcifications. Mild degenerative jesenia nges in the glenohumeral joint. AC joint unremarkable. No osseous lesions. Bone density normal. IMPRESSION: DATA REPOSITORY: RADIATION DOSE DELIVERED:
--- NOTE | 2021-10-27 09:07 | DI.RAD_ITS ---
Exam(s) XR HAND LT COMPLETE EXAM: XR HAND LT COMPLETE CLINICAL HISTORY: eval dorsal left hand pain. TECHNIQUE: 2D digital imaging was performed. COMPARISON: No exams were available for comparison FINDINGS: 3 views No evidence of fracture nor subluxation. Bone density normal. No osseous lesions. No erosions. No degenerative changes. No radiopaque foreign body. IMPRESSION: No significant osseous findings. DATA REPOSITORY: RADIATION DOSE DELIVERED:
== END 2021-10-27 10:36 | disposition home or self-care (01) ==
LOC: DIORS 10:36
PROVIDERS: PCP Physician Assistant Medical; Referring Provider Physician Assistant Medical; Visit Provider Student in an Organized Health Care Education/Training Program
DX: M79.642 Pain in left hand (principal); M25.512 Pain in left shoulder; M25.812 Other specified joint disorders, left shoulder
CPT/HCPCS: 73030; 73130

== ENCOUNTER 2022-09-19 15:07 | Emergency (ER) | payer OTHER, SELFPAY ==
[2022-09-19 15:17] VITALS: BP 151/76; PULSE 83; RESP 18; TEMP 36.1; O2SAT 100
--- NOTE | 2022-09-19 15:49 | ED.GENADUL_ITS ---
Discharge Plan Disposition Patient Disposition: Home Discharge Details Clinical Impression: Lumbar degenerative disc disease Primary Care Provider: Migdalia Dalton ED Provider: Carmella Trejo Home Meds and New Rx's Prescriptions: New cyclobenzaprine 10 mg tablet 10 mg PO TID PRN (Reason: muscle spasm) Qty: 10 0RF No Action cyclobenzaprine 10 mg tablet 10 mg PO HS PRN Men's 50 Plus Daily Formula 400-20-370 mcg tablet 1 tab PO DAILY Zyrtec 10 mg capsule 10 mg PO DAILY PRN paroxetine HCl [Paxil] 40 mg tablet 40 mg PO DAILY clonazepam [Klonopin] 0.5 mg tablet 0.5 mg PO BID PRN buspirone 5 MG tablet 10 mg PO DAILY ciprofloxacin HCl 500 mg tablet 500 mg PO BID Patient Comments: TAKE 1 TABLET BY MOUTH TWICE DAILY fluticasone propionate [Flonase] 50 mcg/actuation [place],Suspension 50 mcg intranasal DAILY fexofenadine-pseudoephedrine [Loren-D 24 Hour] 180-240 mg Tablet Extended Release 24 Hr 180 tab PO 1XD Discharge Instructions Instructions: Degenerative Disc Disease (ED) Additional Instructions: CT shows no evidence of kidney stones, you do have some degenerative disc disease noted in the L-spine. No evidence of urinary tract infection. Please take the muscle relaxer as prescribed. You may also get lidocaine patches which she can get over the counter. Please take Tylenol or Ibuprofen with food every 4-6 hours as needed for pain and swelling. Follow up with primary care provider in 3-5 days. Return to ED sooner if any worsening or concerns. Increase oral fluids. Referrals: Migdalia Dalton PA [Primary Care Provider] - 5 days Medical Decision Making 51-year-old male presents to the ER with a chief complaint of lower back pain which radiates around to his left flank and into his left groin. He reports this is been ongoing for approximately 2 to 3 weeks. He denies any nausea vomiting fever chills however is significant other does say that he is c omplaining of some burning with urination. He denies any history of back surgeries. He does report that pain is worse with movement. Urinalysis ordered, Flexeril and Tylenol 1 g. Urinalysis shows trace blood. CT abdomen pelvis without contrast ordered to rule out kidney stone. Differential diagnosis includes and vomited 2 lumbar strain, kidney stone, gastroenteritis or UTI. CT shows no evidence of kidney stone. There is some L5 spondylosis and L5-S1 spondylolisthesis. Degenerative disc changes noted. Patient discharged with Flexeril prescription and lidocaine patch. This text was generated using [employer] system, please disregard any oddities of phrase or misspellings. Imaging Data Radiologic Study: Imaging: CT Scan Radiologist's impression: Oral: no COMPARISON: CT CT ABDOMEN PELVIS W from 09/09/2019 FINDINGS: ABDOMEN: Lung Bases: Normal where visualized. Stable appearance right-sided pericardial cyst. Liver: Normal density. No measurable mass. Gallbladder and biliary tract: No radiodense calculus or dilation. Pancreas: Normal density, no abnormal calcifications or inflammatory process. Spleen: Normal. Kidneys: Normal size, contour and axis. No radiodense stones or obstructive uropathy. No masses seen. No perinephric collection. Adrenal glands: No masses seen. Lymph nodes: Within normal limits. Abdominal Aorta: Abdominal portion non-dilated. PELVIS: Bladder: Distended. Mild diffuse wall thickening. no stone or mass visible. Bowel: Large quantity of stool seen throughout the colon. No obstruction or bowel wall thickening. Appendix appears normal. Peritoneal cavity: No ascites, collection or mesenteric inflammatory response. Reproductive organs: Within normal limits. Bones: Stable appearance bilateral L5 spondylolysis and mild L5-S1 spondylolisthesis. Degenerative disc changes noted in lumbar region. IMPRESSION: Large quantity of stool. Distended urinary bladder with diffuse wall thickening. Prostate within normal limits in size. HPI General Mode of arrival: ambulatory . Date/Time Provider Initiated Documentation: 09/19/22 15:37 . Limitations to Documentation: no limitations . Information obtained by: patient, family, RN notes reviewed and old records reviewed . HPI Narrative: 51-year-old male presents to the ER with a chief complaint of lower back pain which radiates around to his left flank and into his left groin. He reports this is been ongoing for approximately 2 to 3 weeks. He denies any nausea vomiting fever chills however is significant other does say that he is complaining of some burning with urination. He denies any history of back surgeries. He does report that pain is worse with movement. He has been taking ibuprofen last at 9 AM today. He has a past medical history of degenerative joint disease anxiety, depression, is a former smoker. Related Data Home Medications Medication Instructions Recorded Confirmed buspirone 5 mg tablet 10 mg PO DAILY 11/11/14 09/19/22 cyclobenzaprine 10 mg tablet 10 mg PO HS PRN 12/28/20 09/19/22 cetirizine 10 mg capsule (Zyrtec) 10 mg PO DAILY PRN 01/03/21 09/19/22 paroxetine HCl 40 mg tablet (Paxil) 40 mg PO DAILY 01/03/21 09/19/22 svhbnsqjhgtc-dev-olpde acid-vit 1 tab PO DAILY 05/20/21 09/19/22 K-lycop 400 mcg-20 mcg-370 mcg tablet (Men's 50 Plus Daily Formula) clonazepam 0.5 mg tablet (Klonopin) 0.5 mg PO BID PRN 10/25/21 09/19/22 ciprofloxacin HCl 500 mg tablet 500 mg PO BID 09/19/22 09/19/22 cyclobenzaprine 10 mg tablet 10 mg PO TID PRN muscle spasm #10 09/19/22 tabs fexofenadine-pseudoephedrine ER 180 tab PO 1XD 09/19/22 09/19/22 180 mg-240 mg tablet,ext.release 24 hr (Lorne-D 24 Hour) fluticasone propionate 50 50 mcg intranasal DAILY 09/19/22 09/19/22 mcg/actuation nasal spray,suspension Previous Rx's Medication Instructions Recorded cyclobenzaprine 10 mg tablet 10 mg PO TID PRN muscle spasm #10 09/19/22 tabs Allergies Allergy/AdvReac Type Severity Reaction Status Date / Time codeine AdvReac Mild Nausea Unverified 09/19/22 15:22 oxycodone HCl [From Percocet] AdvReac Mild Nausea Unverified 09/19/22 15:22 MAPLE FLAVORING AdvReac Intermediate Uncoded 09/19/22 15:22 General Stated Complaint: Nk/Back Pain ROB: 4 Review of Systems All systems reviewed & are unremarkable except as noted in HPI and below Genitourinary Genitourinary: Reports flank pain Musculoskeletal Musculoskeletal: Reports back pain PFSH All Active Problems (Updated 09/19/22 @ 16:49 by Carmella Trejo NP) Lumbar degenerative disc disease (Acute) Dysfunction of left rotator cuff (Acute) Left wrist tendinitis (Acute) Left shoulder pain (Acute) Left hand pain (Acute) Family history of colon cancer in father (Acute) Dx age 67-68 Screening for colon cancer (Acute) Medical History Anxiety disorder Cervicalgia Degenerative joint disease Depression Former smoker Gastritis, chronic Generalized pain Hallux valgus Headache Heel pain Low back pain Rupture of right biceps tendon Surgical History H/O knee surgery H/O shoulder surgery History of colonoscopy (~09/02/21) Family History Father Colon cancer Social History Smoking/Tobacco Use Status: Current every day Tobacco Type: smokeless tobacco Smokeless tobacco user: chewing tobacco Smoking risk assessment performed?: Yes Alcohol Intake: current Alcohol Intake frequency: a few times a week Drug use: Never Substance use type: does not use Details: Last chewing tobacco use last night. Current gender identity: male Do you feel safe at home: Yes Additional Social history: Unable to assess privately- in room. Exam Narrative Exam Narrative: Constitutional: Alert and oriented x3. Appears stated age. Normal body habitus. Head: Normocephalic, no trauma. Eyes: Pupils PERRL, Red reflex noted, EOM's intact. Eyelids symmetrical without lesions, discharge, or swelling. ENT: Bilateral TM's WNL, External ear normal to inspection, no mastoid TTP, swelling, or erythema, Nasal turbinates WNL, no nasal discharge. Normal dentition, Posterior pharynx WNL, no exudate. Chest: RRR, Normal S1, S2, distal pulses intact. Resp: Lungs clear to auscultation bilaterally, no wheezes, rales, or rhonchi. Abdomen: Soft, non-distended, Normoactive bowel sounds all 4 quads. Musculoskeletal: Normal gait, 5/5 strength to all four extremities. Skin: No suspicious rashes or lesions. Capillary refill less than 2 sec. Neurologic: Cranial nerves II-XII intact. Alert and oriented x 3. Motor: No deficits noted. Sensory: Intact bilaterally all 4 extremities. Hematologic/Lymphatic: No ecchymosis, no lymphadenopathy. Course Vital Signs Vital signs: Vital Signs Temperature 36.1 C L 09/19/22 15:17 Pulse 83 09/19/22 15:17 Respiratory Rate 18 09/19/22 15:17 Blood Pressure 151/76 H 09/19/22 15:17 Pulse Oximetry 100 09/19/22 15:17 Temperature 36.1 C L 09/19/22 15:17 Temperature Source Tympanic 09/19/22 15:17 Pulse 83 09/19/22 15:17 Respiratory Rate 18 09/19/22 15:17 Respiratory Effort Normal, Non-Labored 09/19/22 15:22 Blood Pressure 151/76 H 09/19/22 15:17 Blood Pressure Position Sitting 09/19/22 15:17 Pulse Oximetry 100 09/19/22 15:17 Oxygen Delivery Method Room Air 09/19/22 15:17 Oxygen Flow Rate 0 09/19/22 15:17 PAWSS Have you Been Recently Intoxicated or Drunk Within the Last 30 days?: No Have you Ever Experienced Previous Episodes of Alcohol Withdrawal?: No Have you ever Experienced Withdrawal Seizures?: No Have you ever Experienced Delirium Tremens(DT)s?: No Have you ever undergone Alcohol Rehabilitation Treatment (i.e, inpt ot outpatient treatment programs)?: No Have you ever Experienced Blackouts?: No Have you ever Combined Alcohol with other Downers within the last 90 days?: No Have you ever Combined Alcohol with any other Substance of Abuse during the last 90 days?: No Positive Blood Alcohol level on Presentation? [PCS.BAL]: No Evidence of Increased Autonomic Activity (i.e. HR>120, tremor, sweating, ag itation, nausea)?: No Result: 0
[2022-09-19] MEDS: Cyclobenzaprine 10 MG TAB PO (15:56)
[2022-09-19] MEDS: Acetaminophen 500 MG TAB 1000 MG PO (15:56)
--- NOTE | 2022-09-19 16:00 | DI.CT_ITS ---
Exam(s) CT ABDOMEN PELVIS WO EXAM: CT ABDOMEN PELVIS WO CLINICAL HISTORY: Left flank pain. TECHNIQUE: Imaging Protocol: Axial computed tomography images with coronal and sagittal reformatted images were created and reviewed. Oral: no COMPARISON: CT CT ABDOMEN PELVIS W from 09/09/2019 FINDINGS: ABDOMEN: Lung Bases: Normal where visualized. Stable appearance right-sided pericardial cyst. Liver: Normal density. No measurable mass. Gallbladder and biliary tract: No radiodense calculus or dilation. Pancreas: Normal density, no abnormal calcifications or inflammatory process. Spleen: Normal. Kidneys: Normal size, contour and axis. No radiodense stones or obstructive uropathy. No masses seen. No perinephric collection. Adrenal glands: No masses seen. Lymph nodes: Within normal limits. Abdominal Aorta: Abdominal portion non-dilated. PELVIS: Bladder: Distended. Mild diffuse wall thickening. no stone or mass visible. Bowel: Large quantity of stool seen throughout the colon. No obstruction or bowel wall thickening. A ppendix appears normal. Peritoneal cavity: No ascites, collection or mesenteric inflammatory response. Reproductive organs: Within normal limits. Bones: Stable appearance bilateral L5 spondylolysis and mild L5-S1 spondylolisthesis. Degenerative d isc changes noted in lumbar region. IMPRESSION: Large quantity of stool. Distended urinary bladder with diffuse wall thickening. Prostate within no rmal limits in size. RADIATION DOSE DELIVERED: 967.22mGy.cm Total DLP DATA REPOSITORY: All CT scans at this facility are submitted to the National Radiology Data Registry (NRDR) Dose Index Registry (DIR) with the [employer] ([employer]). RADIATION OPTIMIZATION: All CT scans at this facility use at least one of these dose optimization te chniques: automated exposure control; mA and/or kV adjustment per patient size (includes targeted exa ms where dose is matched to clinical indication); or iterative reconstruction.
[2022-09-19 16:08] LABS: Bilirubin Negative (Negative); Blood Trace-lysed (Negative); Clarity Clear (Clear); Glucose Negative (Negative); Ketones Negative (Negative); Leukocyte Esterase Negative (Negative); Nitrite Negative (Negative); Urobilinogen 0.2 mg/dL (Up to 0.2); pH 5.5 (5-8)
[2022-09-19 16:18] LABS: Bacteria Negative HPF (Negative); C & S Indicated? No; Casts Negative LPF (Negative); Crystals Negative HPF (Negative); Epithelial Cells Rare HPF (Negative); Mucus Negative (Negative); RBC 0-2 HPF (0-2); WBC 0-2 HPF (0-5)
[2022-09-19] MEDS: Lidocaine 5% Patch 1 PATCH TP (16:56)
[2022-09-19 17:01] VITALS: BP 129/91; PULSE 74; RESP 16; TEMP 36; O2SAT 96
== END 2022-09-19 17:05 | disposition home or self-care (01) ==
PROVIDERS: Emergency Provider Registered Nurse Emergency; PCP Physician Assistant Medical
DX: M51.36 Other intervertebral disc degeneration, lumbar region (principal)
CPT/HCPCS: 99284; 74176; 81003; 81015; 99283

== ENCOUNTER 2022-12-08 02:45 | Outpatient (CLI) | payer OTHER, SELFPAY ==
[2022-12-08 16:35] LABS: Estimated GFR 90.56 (mL/min/1.73m2)
== END 2022-12-08 02:46 | disposition home or self-care (01) ==
LOC: LBO 02:45
PROVIDERS: PCP Physician Assistant Medical; Visit Provider Registered Nurse Maternal Newborn
DX: H90.3 Sensorineural hearing loss, bilateral (principal); Z01.812 Encounter for preprocedural laboratory examination
CPT/HCPCS: 36415; 82565

== ENCOUNTER 2022-12-26 02:27 | Outpatient (CLI) | payer OTHER, SELFPAY ==
--- NOTE | 2022-12-26 07:00 | DI.MRI_ITS ---
Exam(s) MR IAC BRAIN WO/W EXAM: MR IAC BRAIN WO/W CLINICAL HISTORY: asymmetrical hearing loss, right ear down, H90.3. TECHNIQUE: Multiplanar multisequence MRI of the brain and internal auditory canals was performed. CONTRAST MATERIAL: IV Contrast: 17 mL of Dotarem contrast administered. COMPARISON: CT CT SINUS WO from 09/14/2022 FINDINGS: VENTRICLES AND EXTRA AXIAL SPACES: Normal in size and morphology for the patient's age. HEMORRHAGE: None. CEREBRAL PARENCHYMA: No focus of restricted diffusion to suggest acute infarct. No space-occupying le cindy identified. MIDLINE SHIFT: None. BRAINSTEM/CEREBELLUM: Normal. CALVARIUM: Normal. ENHANCEMENT: No suspicious enhancement identified. VISUALIZED PARANASAL SINUSES/MASTOIDS: Clear. [employer] [place] [employer] [place] [employer] [place]: Normal flow void. PITUITARY GLAND: Unremarkable. IAC/CP ANGLE: The internal auditory canals are within normal limits. The cerebellar pontine angles ar e unremarkable. No enhancing lesions are seen. Visualized portion of the facial nerves appear within normal limits. OTHER FINDINGS: None. IMPRESSION: Unremarkable MRI of the brain and internal auditory canals. DATA REPOSITORY:
[2022-12-26] MEDS: Normal Saline Flush 10 ML SYR IVP (08:07)
[2022-12-26] MEDS: Gadoterate meglumine 20 ML VIAL 17 ML IVP (08:07)
== END 2022-12-26 02:47 ==
LOC: DI 02:27
PROVIDERS: PCP Physician Assistant Medical; Visit Provider Registered Nurse Maternal Newborn
DX: H90.3 Sensorineural hearing loss, bilateral (principal)
CPT/HCPCS: 70553

== ENCOUNTER 2023-01-17 17:43 | Outpatient (REF) | payer OTHER, SELFPAY ==
[2023-01-17 20:21] LABS: ALT 29 U/L (16-63); AST 24 U/L (15-37); Albumin 4.2 g/dL (3.4-5.0); Alkaline Phosphatase 72 U/L (46-116); Anion Gap 9.3 mmol/L (3-11); BUN 16 mg/dL (7-18); Bilirubin, Total 0.6 mg/dL (0.2-1.0); CO2 25.7 mmol/L (21.0-32.0); CREATININE 0.9 mg/dL (0.70-1.30); Calcium 9.5 mg/dL (8.5-10.1); Calculated LDL 109 mg/dL (<100); Chloride 102 mmol/L (98-107); Cholesterol 182 mg/dL (<200); Estimated GFR 102.76 (mL/min/1.73m2); Glucose 91 mg/dL (74-106); HDL Cholesterol 66 mg/dL (40-60); Potassium 3.5 mmol/L (3.5-5.1); Sodium 137 mmol/L (136-145); TSH (W/Ref FT4) 2.68 uIU/mL (0.36-3.74); Total Protein 7.3 g/dL (6.4-8.2); Triglyceride 38 mg/dL (<150)
[2023-01-18 21:52] LABS: PSA, Screening 0.7 ng/mL (<=3.5)
== END 2023-01-17 17:44 | disposition home or self-care (01) ==
LOC: NCHCN 17:43
PROVIDERS: PCP Physician Assistant Medical; Visit Provider Physician Assistant Medical
DX: Z00.00 Encounter for general adult medical examination without abnormal findings (principal); Z13.220 Encounter for screening for lipoid disorders; Z13.29 Encounter for screening for other suspected endocrine disorder; Z13.228 Encounter for screening for other metabolic disorders; Z12.5 Encounter for screening for malignant neoplasm of prostate
CPT/HCPCS: 80053; 80061; 84153; 84443

== ENCOUNTER 2023-06-15 21:53 | Outpatient (CLI) | payer OTHER, SELFPAY ==
[2023-06-15 19:14] LABS: Abs Immature Grans 0.02 10^3/uL (0.0-0.06); Absolute Basophil Count 0.04 10^3/uL (0.0-0.2); Absolute Eosinophil Count 0.09 10^3/uL (0.0-0.7); Absolute Lymphocyte Count 2.13 10^3/uL (1.2-3.4); Absolute Monocyte Count 0.49 10^3/uL (0.1-0.8); Absolute Neutrophil Count 3.15 10^3/uL (1.2-6.7); Basophils % 0.7; Eosinophils % 1.5; HCT 35.2 % (40.0-50.0); HGB 12.4 g/dL (13.5-17.5); Immature Grans % 0.3; MCHC 35.2 % (32.0-36.0); MCV 88 fL (80-95); MPV 9.3 fL (8.0-11.0); Monocytes % 8.3; Neutrophils % 53.2; Platelet Count 295 10^3/uL (130-400); RDW 12.1 % (11.8-14.1); RDW-SD 38.9 fL; WBC 5.92 10^3/uL (4.4-10.8)
[2023-06-15 19:34] LABS: Anion Gap 9.1 mmol/L (3-11); BUN 10 mg/dL (7-18); CO2 26.9 mmol/L (21.0-32.0); Calcium 8.6 mg/dL (8.5-10.1); Calculated LDL 128 mg/dL (<100); Chloride 97 mmol/L (98-107); Cholesterol 195 mg/dL (<200); Estimated GFR 90.56 (mL/min/1.73m2); Glucose 93 mg/dL (74-106); HDL Cholesterol 61 mg/dL (40-60); Magnesium 1.8 mg/dL (1.8-2.4); Potassium 3.5 mmol/L (3.5-5.1); Sodium 133 mmol/L (136-145); TSH 2.85 uIU/mL (0.36-3.74); Triglyceride 31 mg/dL (<150)
== END 2023-06-15 21:54 | disposition home or self-care (01) ==
LOC: NCHCN 22:07
PROVIDERS: PCP Physician Assistant Medical; Visit Provider Physician Assistant Medical
DX: R00.2 Palpitations (principal); R79.89 Other specified abnormal findings of blood chemistry
CPT/HCPCS: 80048; 80061; 83735; 84443; 85025

== ENCOUNTER → 2023-12-10 03:42 | Outpatient (CLI) | payer OTHER, SELFPAY ==
--- NOTE | 2023-12-10 15:30 | DI.MRI_ITS ---
Exam(s) MR CERVICAL SPINE WO EXAM: MR CERVICAL SPINE WO CLINICAL HISTORY: CERVICALGIA, M54.2 TECHNIQUE: Multiplanar multisequence MRI of the cervical spine was performed without intravenous con trast. COMPARISON: MR MRI - CERVICAL SPINE WO CONT from 01/13/2016 FINDINGS: BONES: Vertebral body heights are maintained. Intervertebral disc spaces are normal. Alignment is nor mal. Degenerative endplate signal changes are seen at several levels of the cervical spine. CERVICAL CORD: Craniovertebral junction is unremarkable. The cervical cord is normal size and signal intensity. SOFT TISSUES: There is chronic mucosal thickening in the maxillary sinuses bilaterally. No air-fluid level is seen. C2-3: No disc herniation or bulge is identified. No significant central spinal canal or neural forami nal stenosis. C3-4: There is prominence of the osteophyte disc complex. There is no significant central spinal can al stenosis. There is marked right and moderate left neural foraminal stenosis. C4-5: There is prominence of the osteophyte disc complex with a face mint of the anterior subarachnoi d space. There is mild narrowing of the central spinal canal. There is moderate right and marked le ft neural foraminal stenosis. Degenerative changes of the uncovertebral joints are present. C5-6: Prominence of the osteophyte disc complex is seen. No significant central spinal canal stenosi s is seen. There is mild right and moderate left neural foraminal stenosis. Degenerative changes of the uncovertebral joints are present. C6-7: There is a diffuse disc bulge. No significant central spinal canal stenosis is seen. Findings do result in mild narrowing of the left neural foramen. No significant right neural foraminal steno sis. C7-T1: There is prominence of the osteophyte disc complex particularly on the left causing mild left neural foraminal stenosis. No significant right neural foraminal stenosis. No significant central s ambrose canal stenosis. IMPRESSION: Multilevel degenerative changes in the cervical spine resulting in central spinal canal neural forami nal stenosis as described above. DATA REPOSITORY:
== END ==
PROVIDERS: PCP Physician Assistant Medical; Visit Provider Physician Assistant Medical
DX: M48.02 Spinal stenosis, cervical region (principal)
CPT/HCPCS: 72141